=== PATIENT | female | born 1975 | race African-American/Black ===

== ENCOUNTER 2016-05-14 16:53 | Emergency (ER) | payer MEDICAID ==
[~2016-05-14] VITALS: Ht 170.2 cm; Wt 136.1 kg
[2016-05-14] MEDS: Ipratropium 0.02% Inh Soln 2.5ml UD HHN SCH ×2 (17:25→17:49)
[2016-05-14] MEDS ORDERED: Albuterol ud Inhalation HHN ONE (17:30)
[2016-05-14 18:19] VITALS: BP 112/65
--- NOTE | 2016-05-15 13:07 | Emergency Room Report ---
History of Present Illness General Chief Complaint: Flu Like Symptoms Source: EMS Present Illness HPI The patient is a 40-year-old female with a history of asthma brought in by ambulance for shortness of breath and productive cough. Sputum describes as white. The patient states that the symptoms began this morning for no known reason. The patient took albuterol at home with no relief. Patient denies any other symptoms including chest pain, fever, chills, nausea, vomiting, dizziness , diaphoresis, numbness/tingling Allergies: Coded Allergies: PENICILLINS (Unverified Allergy, Unknown, 05/14/16) Patient History Past Medical History: see triage record, asthma Pertinent Family History: none Reviewed Nursing Documentation: PMH: Agreed, PSxH: Agreed Nursing Documentation-PMH Past Medical History: No History, Except For Hx Hypertension: Yes Hx Asthma: Yes Hx Neurological Problems: Yes - ANXIETY Review of Systems All Other Systems: negative except mentioned in HPI Physical Exam Vital Signs Date Time Temp Pulse Resp B/P Pulse Ox O2 Delivery O2 Flow Rate FiO2 05/14/16 16:50 98.4 86 18 112/65 99 Room Air 05/14/16 17:26 21 Sp02 EP Interpretation: reviewed, normal General Appearance: no apparent distress, alert, GCS 15, non-toxic Head: normocephalic, atraumatic Eyes: bilateral eye PERRL, bilateral eye normal inspection ENT: hearing grossly normal, normal pharynx, no angioedema, normal voice Neck: full range of motion, supple/symm/no masses Respiratory: chest non-tender, lungs clear, decreased breath sounds, speaking full sentences Cardiovascular #1: regular rate, rhythm, no edema Musculoskeletal: back normal, gait/station normal, normal range of motion, non- tender Neurologic: alert, oriented x3, responsive, motor strength/tone normal, sensory intact, speech normal Psychiatric: judgement/insight normal, memory normal, mood/affect normal, no suicidal/homicidal ideation Skin: normal color, no rash, warm/dry, well hydrated Lymphatic: no adenopathy Medical Decision Making PA Attestation Dr. Will is my supervising physician. Patient management was discussed with my supervising physician Diagnostic Impression: Primary Impression: Asthma exacerbation ER Course The patient is a 40-year-old female with a history of asthma brought in by ambulance for shortness of breath and productive cough Differential diagnosis include but not limited to asthma exacerbation, pharyngitis, sinusitis, bronchitis, PNA PE: No apparent distress. No TTP over maxillary or frontal sinuses. Lungs CTA bilat. No accessory muscle use. Decreased breath sounds Heart: RRR, no abnormal heart sounds Ears: external auditory canal clear. Non erythematous. Bilat TM intact. Cone of light present bilat. No bulging of TM. No serous fluid seen. no nasal D/C no cervical lymphad No tonsillar exudate. Uvula midline.Oropharynx non erythematous The patient is given a breathing treatment with albuterol and ipratripium bromide and is feeling better. Lung sounds have increased. No wheezing. Pt states she is ready to go home and will be DC'ed with ER precautions. Pt state she has all asthma medications at home and does not need refills. The patient will followup with PMD Last Vital Signs Date Time Temp Pulse Resp B/P Pulse Ox O2 Delivery O2 Flow Rate FiO2 05/14/16 18:19 98.4 19 112/65 99 Room Air 21 05/14/16 17:45 90 Status: improved Disposition: HOME, SELF-CARE Condition: Improved Patient Instructions: Asthma, Adult, Asthma Attack Prevention Additional Instructions: I discussed my findings with the patient. All questions and concerns have been answered. Treatment and medication compliance have been addressed. I advised the patient that they need to follow up with PMD in 3-5 days. Return to ED if symptoms worsen, new symptoms arise, or if needed for any reason. Patient verbalized understanding of discharge instructions. CHRYSTAL GARCIA May 15, 2016 13:07
== END 2016-05-14 18:51 | disposition home or self-care (01) ==
LOC: EDBD 16:53 → EMR 17:16
DX: J45.901 Unspecified asthma with (acute) exacerbation (principal); R05 Cough; Z88.0 Allergy status to penicillin; I10 Essential (primary) hypertension; F41.9 Anxiety disorder, unspecified
CPT/HCPCS: 94640; 94664; 99283